=== PATIENT | female | born 1995 | race Caucasian/White ===

== ENCOUNTER → 2019-03-21 | Outpatient (CLI) | payer OTHER ==
--- NOTE | 2019-03-22 08:59 | REP ---
REASON: Pain after trauma. FINDINGS: No acute fracture or destructive osseous lesion. Electronically Signed by Norbert Red DO 03/22/2019 09:01 A
== END ==
LOC: M LRY 18:25
PROVIDERS: ATTEND Physician Assistant
DX: S69.91XA Unspecified injury of right wrist, hand and finger(s), initial encounter (principal); X58.XXXA Exposure to other specified factors, initial encounter; Y92.89 Other specified places as the place of occurrence of the external cause; Y93.9 Activity, unspecified; Y99.9 Unspecified external cause status
CPT/HCPCS: 73110; 81025; G0463

== ENCOUNTER → 2019-07-29 | Outpatient (CLI) | payer OTHER ==
[~2019-07-29] MED LIST: CONRAY-43 43% 50ML VIAL (Q9960) As Ordered ONE
--- NOTE | 2019-07-29 10:06 | REP ---
CT ARTHROGRAPHY RIGHT WRIST: HISTORY: Pain and stiffness of the right wrist. TECHNIQUE: The injection procedure is performed and dictated separately. Post injection, helical acquisition is acquired and 2 mm axial, coronal and sagittal images are reformatted. CT ARTHROGRAPHIC FINDINGS: There is good filling of the radiocarpal articulation. Contrast injected is limited to this articulation. There is no evidence of triangular fibrocartilage disruption. No contrast is seen in the distal radioulnar joint or in the middle carpal row. There is no evidence of loose body. Cortical and medullary bone density appears normal. Alignment is normal. IMPRESSION: Negative CT wrist arthrography. No evidence of triangular fibrocartilage tear or loose body. Electronically Signed by Gerald Cole MD 07/29/2019 10:54 A
--- NOTE | 2019-07-29 11:03 | REP ---
Reason For Exam/Comment: Right wrist pain Procedure: Right wrist CT arthrogram The procedure was performed by DIAMANTE Merino, under the direct supervision of Dr. Cole. The benefits and risks including but not limited to pain, infection, bleeding and anaphylaxis were explained to the patient and informed consent was obtained both verbally and written. Directly prior to the start of the procedure, a formal timeout was completed in the procedure room. Technique: The right radial carpal joint space was localized using fluoroscopic guidance. The skin was prepped and draped in the usual sterile fashion. 2 mL of 1% lidocaine 10 mg/ml was used as a local anesthetic. Using fluoroscopic guidance a 25-gauge needle was inserted and advanced to the right radiocarpal joint space . 3 mL of Conray 43 was injected to verify needle placement and post procedural imaging. The needle was removed and the patient was taken CT for post procedural imaging. The patient tolerated the procedure well and there were no immediate complications. 0.2 minutes of fluoroscopy time was utilized for this procedure. Some fluoroscopic images are performed with last image hold technology. These images require no additional radiation. Reviewed by DIAMANTE Timmons 07/29/2019 08:46 A Electronically Signed by Gerald Cole MD 07/29/2019 10:55 A
== END ==
LOC: M RADPRO 07:06
PROVIDERS: ATTEND Orthopaedic Surgery Hand Surgery
DX: M25.631 Stiffness of right wrist, not elsewhere classified (principal); M25.531 Pain in right wrist
CPT/HCPCS: 25246; 73201; 77002; Q9960

== ENCOUNTER 2019-12-06 15:43 | Emergency (ER) | payer OTHER ==
[~2019-12-06] VITALS: Ht 157.5 cm; Wt 71.7 kg
[2019-12-06] MEDS ORDERED: CLAR10CA3 PO (15:47)
[2019-12-06] MEDS ORDERED: KETOROLAC 30 MG/ML 1ML VIAL IV ONE (17:00)
[2019-12-06 17:16] LABS: BASO % 0.3 % (0.0-1.0); EOS # 0.1 10^3/uL (0.0-0.5); EOS % 1.4 % (0.0-3.0); HEMATOCRIT 43.7 % (36.0-47.0); HEMOGLOBIN 14.3 g/dl (12.0-15.5); LYMPH # 2.2 10^3/uL (1.5-5.0); LYMPH % 33.7 % (24.0-44.0); MEAN CORPUSCULAR HEMOGLOBIN 28.9 pg (27.0-33.0); MEAN CORPUSCULAR HGB CONC 32.7 g/dl (32.0-36.5); MEAN CORPUSCULAR VOLUME 88.5 fl (80.0-96.0); MONO # 0.4 10^3/uL (0.0-0.8); MONO % 6.2 % (0.0-5.0); NEUTROPHILS # 3.7 10^3/uL (1.5-8.5); NEUTROPHILS % 58.2 % (36.0-66.0); PLATELET COUNT, AUTOMATED 283 10^3/uL (150-450); RED BLOOD COUNT 4.94 10^6/uL (4.00-5.40); WHITE BLOOD COUNT 6.4 10^3/uL (4.0-10.0)
[2019-12-06] MEDS ORDERED: ISOVUE-370 76% 100ML VIAL As Ordered ONE (17:19)
[2019-12-06 17:39] LABS: ALBUMIN 4.1 GM/DL (3.2-5.2); ALT/SGPT 28 U/L (12-78); BILIRUBIN,DIRECT < 0.1 MG/DL (0.0-0.2); BILIRUBIN,TOTAL 0.4 MG/DL (0.2-1.0); LIPASE 124 U/L (73-393); TOTAL PROTEIN 8.2 GM/DL (6.4-8.2)
--- NOTE | 2019-12-06 17:44 | REPVR ---
PROCEDURE INFORMATION: Exam: CT Abdomen And Pelvis With Contrast Exam date and time: 12/06/2019 4:51 PM Age: 24 years old Clinical indication: Abdominal pain; Localized; Left upper quadrant (luq); Additional info: Luq pain TECHNIQUE: Imaging protocol: Computed tomography of the abdomen and pelvis with intravenous contrast. Radiation optimization: All CT scans at this facility use at least one of these dose optimization techniques: automated exposure control; mA and/or kV adjustment per patient size (includes targeted exams where dose is matched to clinical indication); or iterative reconstruction. Contrast material: ISOVUE 370; Contrast volume: 100 ml; Contrast route: INTRAVENOUS (IV); COMPARISON: No relevant prior studies available. FINDINGS: Liver: Normal. No mass. Gallbladder and bile ducts: Normal. No calcified stones. No ductal dilation. Pancreas: Normal. No ductal dilation. Spleen: Normal. No splenomegaly. Adrenals: Normal. No mass. Kidneys and ureters: Normal. No hydronephrosis. Stomach and bowel: Mild fecal retention consistent with constipation. Appendix: No evidence of appendicitis. Intraperitoneal space: Unremarkable. No free air. No significant fluid collection. Vasculature: Unremarkable. No abdominal aortic aneurysm. Lymph nodes: Unremarkable. No enlarged lymph nodes. Bladder: Unremarkable as visualized. Reproductive: Unremarkable as visualized. Bones/joints: Unremarkable. No acute fracture. Soft tissues: Unremarkable. IMPRESSION: 1. Mild fecal retention consistent with constipation. 2. Otherwise unremarkable. Electronically signed by: Taye Campbell On 12/06/2019 17:44:14 PM
[2019-12-06] MEDS ORDERED: OMEP40CA97 PO (18:04)
[2019-12-06 18:09] VITALS: BP 130/87
== END 2019-12-06 18:41 | disposition home or self-care (01) ==
LOC: M ED 15:43
DX: R10.12 Left upper quadrant pain (principal)
CPT/HCPCS: 74177; 80047; 80076; 81001; 83690; 84702; 85025; 96374; 99284; J1885; Q9967

== ENCOUNTER → 2020-03-21 | Outpatient (REF) | payer OTHER ==
[~2020-03-21] MED LIST changes: +CLAR10CA3 PO; -CONRAY-43 43% 50ML VIAL (Q9960) As Ordered ONE; +OMEP40CA97 PO
[2020-03-31 23:07] LABS: H PYLORI STOOL ANTIGEN Negative (Negative); PANCREATIC ELASTASE STOOL 417 (>200)
== END ==
LOC: M LAB REF 11:57
PROVIDERS: ATTEND Specialist
DX: R10.13 Epigastric pain (principal); R10.11 Right upper quadrant pain; R19.7 Diarrhea, unspecified